=== PATIENT | female | born 1965 | race Caucasian/White ===

== ENCOUNTER 2022-03-28 16:00 | Emergency (ER) | payer OTHER ==
[2022-03-28] MEDS ORDERED: CYCLOBENZAPRINE10 MG PO (21:06)
[2022-03-28] MEDS ORDERED: NAPROXEN500 MG PO (21:06)
[2022-03-28] MEDS ORDERED: NORCO 5-325 TA1 EACH PO (21:06)
[2022-03-28] MEDS ORDERED: PERCOCET 5-3251 EACH PO (21:07)
== END 2022-03-28 22:15 | disposition home or self-care (01) ==
LOC: FER 16:00
DX: S52.132A Displaced fracture of neck of left radius, initial encounter for closed fracture (principal); R07.81 Pleurodynia; W18.40XA Slipping, tripping and stumbling without falling, unspecified, initial encounter; Y93.89 Activity, other specified; Y92.009 Unspecified place in unspecified non-institutional (private) residence as the place of occurrence of the external cause
CPT/HCPCS: 71101; 71250; 73080; 73090; J1170